=== PATIENT | female | born 1985 | race African-American/Black ===

== ENCOUNTER 2021-02-04 01:06 | Emergency (ER) | payer OTHER, SELFPAY ==
[~2021-02-04] VITALS: Ht 167.6 cm; Wt 97.2 kg
[2021-02-04] MEDS ORDERED: METH-1165 PO (10:08)
[2021-02-04 10:24] VITALS: BP 118/74
== END 2021-02-04 10:24 | disposition home or self-care (01) ==
LOC: M ED 01:06
DX: S39.012A Strain of muscle, fascia and tendon of lower back, initial encounter (principal); S61.032A Puncture wound without foreign body of left thumb without damage to nail, initial encounter; V40.5XXA Car driver injured in collision with pedestrian or animal in traffic accident, initial encounter; Y92.410 Unspecified street and highway as the place of occurrence of the external cause